=== PATIENT | male | born 2000 | race African-American/Black ===

== ENCOUNTER 2024-03-08 17:09 | Emergency (ER) | payer MEDICAID ==
[~2024-03-08] VITALS: Ht 172.7 cm; Wt 60.0 kg
[2024-03-08 17:30] VITALS: O2SAT 100
[2024-03-08] MEDS: PREDNISONE 20MG TABLET PO ONE (21:32)
[2024-03-08] MEDS: IPRATROPIUM/ALBUTEROL 0.5-3(2.5)MG/3ML NEB HHN ONE (23:38)
[2024-03-09] MEDS ORDERED: ALBU90AE INH (00:04)
[2024-03-09] MEDS ORDERED: TOPUD MT (00:04)
[2024-03-09] MEDS ORDERED: P50 MT (00:04)
[2024-03-09] MEDS ORDERED: DEXT30SU17 MT (00:04)
[2024-03-09 00:17] VITALS: BP 116/66; PULSE 89; RESP 18; TEMP 36.89184; O2SAT 100
== END 2024-03-09 02:30 | disposition home or self-care (01) ==
LOC: ER 17:09
DX: J45.901 Unspecified asthma with (acute) exacerbation (principal); Z76.0 Encounter for issue of repeat prescription
CPT/HCPCS: 99283; J7512; Z7610

== ENCOUNTER 2024-12-17 09:46 | Emergency (ER) | payer MEDICAID ==
[~2024-12-17] VITALS: Ht 167.6 cm; Wt 60.0 kg
[~2024-12-17 09:46] MED LIST: ALBU90AE INH; DEXT30SU17 MT; P50 MT; TOPUD MT
[2024-12-17 09:58] VITALS: TEMP 36.7; O2SAT 100
[2024-12-17] MEDS ORDERED: ALBU05 NEB (11:03)
[2024-12-17] MEDS ORDERED: DEX4 MT (11:03)
[2024-12-17 11:18] VITALS: BP 122/90; PULSE 60; RESP 18; O2SAT 100
== END 2024-12-17 12:18 | disposition home or self-care (01) ==
LOC: ER 09:46
DX: J45.901 Unspecified asthma with (acute) exacerbation (principal); Z79.899 Other long term (current) drug therapy
CPT/HCPCS: 99283